=== PATIENT | male | born 2000 | race Two or more races ===

== ENCOUNTER 2019-09-27 05:30 | Emergency (ER) | payer MEDICAID, OTHER ==
[~2019-09-27] VITALS: Ht 180.3 cm; Wt 81.6 kg
[2019-09-27 05:45] VITALS: BP 136/75
== END 2019-09-27 05:52 ==
LOC: ER 05:30
DX: S60.512A Abrasion of left hand, initial encounter (principal); X58.XXXA Exposure to other specified factors, initial encounter; Y93.89 Activity, other specified; Y99.8 Other external cause status; Y92.89 Other specified places as the place of occurrence of the external cause